=== PATIENT | male | born 1985 | race Caucasian/White ===

== ENCOUNTER 2024-10-08 00:33 | Emergency (ER) | payer OTHER ==
[2024-10-08] MEDS: Diphtheria,Pertussis(Acell),Tetanus Vaccine 0.5 ML Syringe IM ONE (01:34)
[2024-10-08] MEDS: Bupivacaine 0.5% 10 ML SDV INJECT ONE (01:36)
[2024-10-08] MEDS: ceFAZolin 1 GM Vial IM ONE (01:45)
== END 2024-10-08 02:26 | disposition home or self-care (01) ==
LOC: MW.ED 00:33
DX: S62.634B Displaced fracture of distal phalanx of right ring finger, initial encounter for open fracture (principal); W23.0XXA Caught, crushed, jammed, or pinched between moving objects, initial encounter
CPT/HCPCS: 12002; 73140; 90471; 90715; 96372; 99283; J0665; J0690; 11740; 99282